=== PATIENT | female | born 1965 | race Caucasian/White ===

== ENCOUNTER 2016-10-22 11:44 | Emergency (ER) | payer OTHER ==
[2016-06-28 16:02] VITALS: Ht 154.9 cm; Wt 52.2 kg
[~2016-10-22] VITALS: Ht 154.9 cm; Wt 52.2 kg
[2016-10-22 11:46] VITALS: BP 154/102; PULSE 97; RESP 16; TEMP 97.4; O2SAT 98
--- NOTE | 2016-10-22 11:51 | NUR ---
Placed in room 08. Placed on desk monitor, blood pressure machine and pulse oximeter. To gown for exam. Side rails up. Report given to Ayde RN.
[2016-10-22] MEDS ORDERED: IBUPROFEN 800 MG TABLET PO ONE (12:00)
--- NOTE | 2016-10-22 12:00 | NUR ---
PATIENT STARTED HAVING SHORTNESS OF BREATH AND PAIN TO LEFT SIDE OF CHEST YESTERDAY.WENT TO ER LAST NIGHT BUT ALL TESTS CAME OUT NEGATIVE.COMPLAINING OF 7/10 PAIN TO LEFT CHEST.NO SHORTNESS OF BREATH.PER PATIENT SHE CAME BACK TO ER BECAUSE THE PAIN CAME BACK. Addendum: 10/22/16 at 1605 by SABRINA NO OTHER COMPLAINTS/INJURIES PER PATIENT OR NOTED
--- NOTE | 2016-10-22 12:09 | NUR ---
ER at bedside examining patient.
[2016-10-22] MEDS ORDERED: IBUPROFEN 600 MG TABLET PO ONE (13:00)
--- NOTE | 2016-10-22 13:50 | NUR ---
Patient given written and verbal discharge instructions and verbalizes understanding. ER MD discussed with patient the results and treatment provided. Patient in stable condition. ID arm band removed. Rx of Motrin given. Patient educated on pain management and to follow up with PMD in 2 days. Pain Scale . Opportunity for questions provided and answered. Addendum: 10/22/16 at 1606 by SABRINA PAIN 0/10
[2016-10-22 13:52] VITALS: BP 145/90; PULSE 92; RESP 18; TEMP 97.6; O2SAT 99
== END 2016-10-22 13:52 | disposition home or self-care (01) ==
LOC: SED 11:44
DX: M94.0 Chondrocostal junction syndrome [Tietze] (principal); Z88.5 Allergy status to narcotic agent
CPT/HCPCS: 93005; 99283